=== PATIENT | male | born 1930 | race Caucasian/White ===

== ENCOUNTER → 2016-12-29 | Outpatient (CLI) | payer OTHER | LOC: FIMAGING 11:13 | PROVIDERS: ATTEND Family Medicine | DX: K59.00 Constipation, unspecified (principal) ==

== ENCOUNTER 2017-01-17 11:23 | Observation (INO) | payer OTHER ==
[~2017-01-17 11:23] MED LIST: BUPIVACAINE 0.5% 30 ML SDV ONE; ceFAZolin 2 GM/DEXTROSE 100 ML IV ONE
[2017-01-17] MEDS ORDERED: LR 1,000 ML IV ONE (11:42)
[2017-01-17] MEDS ORDERED: LIDOCAINE 1% 5 ML SDV ID PRN (11:42)
[2017-01-17] MEDS ORDERED: LIDOCAINE 1% 2 ML INJ ONE (11:44)
[2017-01-17] MEDS ORDERED: CEFAZOLIN 2 GM/DEXTROSE/100 ML BAG IV ONE (11:44)
[2017-01-17 12:25] LABS: INR 1.43 (0.83-1.16); PROTIME(PATIENT) 17.4 SEC (12.0-15.0)
[2017-01-17] MEDS ORDERED: fentaNYL 100 MCG/2 ML INJ ONE ×2 (13:49→14:53)
[2017-01-17] MEDS ORDERED: REMIFENTANIL HCL 1 MG VIAL ONE (13:50)
[2017-01-17] MEDS ORDERED: PROPOFOL/EMULSION 500 MG/50 ML BOTTLE IV ONE (13:50)
[2017-01-17] MEDS ORDERED: DEXAMETHASONE 4 MG/ML VIAL ONE (13:51)
[2017-01-17] MEDS ORDERED: KETOROLAC 30 MG/1 ML SDV ONE (13:51)
[2017-01-17] MEDS ORDERED: ROCURONIUM 50 MG/5 ML VIAL ONE (13:51)
[2017-01-17] MEDS ORDERED: LIDOCAINE 2% 5 ML SDV ONE (13:53)
[2017-01-17] MEDS ORDERED: epHEDrine SULFATE 10 MG/ML SYR ONE (14:17)
[2017-01-17] MEDS ORDERED: ONDANSETRON 4 MG/2 ML VIAL IVP PRN (17:25)
[2017-01-17] MEDS ORDERED: OXYCODONE/APAP 5/325 TAB PO PRN (17:25)
[2017-01-17] MEDS ORDERED: HYDROmorphONE/DILAUDID 1 MG/ML SYR IVP PRN (17:25)
--- NOTE | 2017-01-17 17:36 | POSTOPPROG ---
Post Op Note Date of Operation: 01/17/17 Surgeon: Lion Carroll Destination Imagination Coordinator: BREEZY Anesthesiologist: JAVI Anesthesia: GET(General Endotracheal) Pre-op Diagnosis: BIH Post-op Diagnosis: SAME Indication: PAIN Procedure: LAP BIH Findings: BILATERAL DIRECT WITH INDIRECT SAC ON LEFT ALSO Inf/Abcess present in the surg proc area at time of surgery?: No Depth: Organ Space EBL: Minimal Complications: 0
--- NOTE | 2017-01-17 17:46 | SOAPPROG ---
SOAP Progress Note Assessment/Plan: Assessment: POSTOP ALERT AND PAIN FREE / WOUNDS OKAY / POSITIVE VOID Plan: HOME IN THE A.M. 01/17/17 17:44 Objective: Vital Signs Temp Pulse Resp BP Pulse Ox 36.1 C 58 L 21 H 144/99 H 91 L 01/17/17 16:50 01/17/17 16:50 01/17/17 17:01 01/17/17 17:01 01/17/17 17:05 01/16/17 01/17/17 01/18/17 05:59 05:59 05:59 Output Total 5 Balance -5 PT 17.4 SEC (12.0-15.0) H 01/17/17 12:00 INR 1.43 (0.83-1.16) H 01/17/17 12:00 ICD10 Worksheet Patient Problems: Problems Problem Status Onset Bilateral inguinal hernia (BIH) Acute - ICD10 Problem Qualifiers (1) Bilateral inguinal hernia (BIH) Qualifiers: Obstruction and gangrene presence: O Recurrence: R
--- NOTE | 2017-01-17 19:16 | GOP ---
[f rep st] OPERATIVE REPORT DATE OF OPERATION: SURGEON: Lion Carroll MD BAKER APPRENTICE: COURTNEY Lou ANESTHESIOLOGIST: Jaswant Mendez DO PREOPERATIVE DIAGNOSIS: Bilateral inguinal hernias. POSTOPERATIVE DIAGNOSIS: Bilateral inguinal hernias. PROCEDURE PERFORMED: Laparoscopic bilateral inguinal hernia repairs with mesh FINDINGS: Patient was found to have bilateral direct defects, left greater than right. He also had an indirect sac on the left as well. DESCRIPTION OF PROCEDURE: The patient was taken to the operating room where received satisfactory g eneral endotracheal anesthesia by Dr. Mendez. He was placed in supine position and prepped and draped in the usual sterile fashion. An infraumbilical incision was made. Dissection was carried down to the rectus sheath, which was incised. A subfascial tunnel was developed in the preperitonea l space. That was dissected free with a balloon dissector, which was replaced with a CO2 insufflati on trocar. Two other trocars were placed in the midline under direct vision. The cords were mobili zed bilaterally. Peritoneum was dissected off the cord structures. On the left, there was an indir ect sac, which was dissected free and reduced. Bilateral direct sacs were dissected free and reduce d, and the openings were well exposed. Bilateral Covidien polyester mesh patches were placed over t he inguinal floor and anchored in place with AbsorbaTack, securing it to Pierre ligament, the lacuna r ligament, the anterior abdominal wall, the lateral abdominal wall outside the internal ring. Hemo stasis was assured. Trocars were removed under direct vision releasing the pneumopreperitoneum. Tr ocar sites were closed with 0 Vicryl for the fascia and 4-0 Monocryl subcuticular stitch for the ski n. All layers infiltrated with 0.5% Marcaine. Blood loss was negligible. There were no complicati ons. /[id number]/MODL
[2017-01-18 07:12] VITALS: BP 133/63; PULSE 54; RESP 14; TEMP 97.6; O2SAT 91
--- NOTE | 2017-01-18 12:56 | SOAPPROG ---
SOAP Progress Note Assessment/Plan: Assessment/Plan: 86 Y M s/p laparoscopic inguinal hernia repair. POD#1. D/c to home. S: No pain. Voiding fine. No N/V. Tolerating diet. O: gen: alert, nad heent: ncat, mmm chest: ctab anteriorly cor: rrr abd: soft, inc cdi, no recurrent hernia gen: no scrotal swelling. 01/18/17 12:54 Objective: Vital Signs Temp Pulse Resp BP Pulse Ox 36.4 C 54 L 14 133/63 H 91 L 01/18/17 07:10 01/18/17 07:10 01/18/17 07:10 01/18/17 07:10 01/18/17 07:10 01/17/17 01/18/17 01/19/17 05:59 05:59 05:59 Intake Total 375 Output Total 5 150 Balance 370 -150 PT 17.4 SEC (12.0-15.0) H 01/17/17 12:00 INR 1.43 (0.83-1.16) H 01/17/17 12:00 ICD10 Worksheet Patient Problems: Problems Problem Status Onset Bilateral inguinal hernia (BIH) Acute
== END 2017-01-18 11:31 | disposition home or self-care (01) ==
LOC: FSGY 11:23 → F3E 17:00
PROVIDERS: ADMIT Surgery; ATTEND Surgery
PROC: 0YUA4JZ Supplement Bilateral Inguinal Region with Synthetic Substitute, Percutaneous Endoscopic Approach (ICD-10-PCS; principal; 2017-01-17 13:45)
DX: K40.00 Bilateral inguinal hernia, with obstruction, without gangrene, not specified as recurrent (principal); N40.0 Benign prostatic hyperplasia without lower urinary tract symptoms; N18.3 Chronic kidney disease, stage 3 (moderate); Z86.73 Personal history of transient ischemic attack (TIA), and cerebral infarction without residual deficits; M10.9 Gout, unspecified; E78.5 Hyperlipidemia, unspecified; E03.9 Hypothyroidism, unspecified
CPT/HCPCS: 49505; C1727; C1781; J0690; J1100; J1885; J2704; J3010